=== PATIENT | female | born 2000 | race African-American/Black ===

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

== ENCOUNTER 2020-06-02 22:36 | Outpatient (CLI) | payer OTHER ==
[~2020-06-02] VITALS: Ht 162.6 cm; Wt 69.0 kg
[~2020-06-02 22:36] MED LIST changes: +MACR100C43 PO; +PREN29TA4 PO; +REGL10TA6 PO
[2020-06-02 22:53] VITALS: BP 117/75
[2020-06-03 00:01] VITALS: BP 113/68
--- NOTE | 2020-06-03 00:12 | IPNPDOC ---
Text Note Date of Service The patient was seen on 06/02/20. NOTE 20yo at 35+2wks presenting for c/o cramping pelvic pain. She denies VB, LOF, DFM. She also upon questioning admits to vaginal discharge. Vitals: normotensive, afebrile NST: reactive Tocometry: rare ctx's (total of 3 seen over 40 minute observation) PE: Gen: well-appearing, resting comfortably in bed, in NAD HEENT: NC/AT, airway patent and self-maintained RESP: no exaggerated respiratory effort appreciated ABD: soft, gravid, nontender, nondistended : SVE closed/thick/high. Vaginal discharge c/w candidiasis present, no VB noted Ext: no edema A/P: 20yo at 35+2wks presenting for c/o cramping pelvic pain. Patient not in labor. Clinical exam c/w vaginal candidiasis. Patient instructed to pick remover OTC monistat/microfluconazole/clotrimazole on the way home due to weekend hours Patient advised to avoid intercourse and baths for several days to allow rebalancing of vaginal pH Patient counseled on strict return precautions FKCs, labor precautions reviewed Patient to f/u for LV appt as scheduled in 3 days. All questions answered. Med rec done. VS,Fishbone, I+O VS, Fishbone, I+O Vital Signs Date Time Temp Pulse Resp B/P (MAP) Pulse Ox O2 Delivery O2 Flow Rate FiO2 06/02/20 22:53 97.8 106 117/75 (89) FRANCISCO GRECO DO Jun 03, 2020 00:12
== END 2020-06-03 00:05 | disposition home or self-care (01) ==
LOC: M LDO 22:36
DX: O23.593 Infection of other part of genital tract in pregnancy, third trimester (principal); B37.3 Candidiasis of vulva and vagina; Z3A.35 35 weeks gestation of pregnancy
CPT/HCPCS: 59025; G0378; G0463

== ENCOUNTER 2020-06-24 00:21 | Outpatient (CLI) | payer OTHER ==
[~2020-06-24] VITALS: Ht 162.6 cm; Wt 69.7 kg
[2020-06-24 00:39] VITALS: BP 109/62
[2020-06-24 01:48] VITALS: BP 119/75
[2020-06-24] MEDS ORDERED: MAPA500T2 PO (22:48)
== END 2020-06-24 02:00 | disposition home or self-care (01) ==
LOC: M LDO 00:21
PROVIDERS: ATTEND Obstetrics & Gynecology
DX: O42.02 Full-term premature rupture of membranes, onset of labor within 24 hours of rupture (principal); O26.13 Low weight gain in pregnancy, third trimester; Z3A.38 38 weeks gestation of pregnancy
CPT/HCPCS: 59025; G0378; G0463

== ENCOUNTER 2020-06-24 21:17 | Inpatient (IN) | payer OTHER ==
[~2020-06-24] VITALS: Ht 162.6 cm; Wt 69.6 kg
[2020-06-24 21:36] VITALS: BP 102/67
[2020-06-24] MEDS ORDERED: MAPA500T2 PO (22:48)
[2020-06-24 23:27] LABS: HEMATOCRIT 37.9 % (36.0-47.0); MEAN CORPUSCULAR HGB CONC 34.3 g/dl (32.0-36.5); MEAN CORPUSCULAR VOLUME 87.3 fl (80.0-96.0); PLATELET COUNT, AUTOMATED 213 10^3/uL (150-450); RED BLOOD COUNT 4.34 10^6/uL (4.00-5.40); WHITE BLOOD COUNT 10.3 10^3/uL (4.0-10.0)
--- NOTE | 2020-06-24 23:37 | HPEPDOC ---
Obstetrical History & Physical General Date of Admission Jun 24, 2020 at 22:23 History of Present Illness 20yo at 38+3wks presenting for c/o worsening ctx's. Upon arrival to L&D tri age she had PROM of meconium fluid. Endorses spotting VB since last SVE yesterday. Reports +FM. Chief Complaint: Contractions, term Information Provided By: Patient Care Care: Good Care Dating Final EDC: Jun 24, 2020 Final EDC for Daily Update: Jun 24, 2020 Final EDC by: LMP LMP: Sep 29, 2019 Antepartum Course Diagnos(e)s Chlamydia in (ESTEE negative) Echogenic focus on heart - negative QUAD screen = Resolved Insufficient weight gain (13lbs gained in ) Height (inches): 64 Pre- weight (lbs.): 141 Admission Weight (lbs.): 154 Change in Weight (lbs.): 13 Past Medical History Past Obstetrical History : Past Obstetrical History: [employer] History: History of STD Past Medical History Medical History Denies Surgical History: Nebo teeth Family History Significant Family History: Asthma (PGF), Heart disease (MGM) Social History Marital Status: Family situation: Spouse/partner home Psychosocial History: No pertinent psych hx * Smoker: non-smoker Alcohol: Denies Drugs: denies Abuse Violence Screening Have you been hit/kicked/slapp: No Have you been sexually assault: No Imunizations Tdap status: current (04/11/2020) Influenza Status: current ([id number]) Allergies Coded Allergies: No Known Allergies (Unverified , 10/12/19) Medications Scheduled PRN Acetaminophen (Mapap) 500 Mg Tablet, 1,000 MG PO Q6HP PRN for PAIN OR FEVER Physical Examination Physical Examination GENERAL: Alert and oriented times three. ABDOMEN: Gravid and non-tender to touch. FETUS: Is vertex (VTX) by sterile vaginal examination (SVE), fetus is vertex (VTX) by Shaggy. CARDS: well-perfused RESP: no exaggerated resp effort appreciated EXTREMITIES: No edema. No clonus. Deep tendon reflexes (DTRs) + . Vital Signs/I&O Vital Signs Date Time Temp Pulse Resp B/P (MAP) Pulse Ox O2 Delivery O2 Flow Rate FiO2 06/24/20 21:36 99 102/67 (79) 06/24/20 21:36 96.9 16 Room Air Laboratory Data 24H LABS Laboratory Tests 2 06/24/20 22:35: Serology Scanned Report Hepatitis B Testing Urine Culture: No Growth Pertinent Laboratoy Data Blood Type: B+ RBC Antibody Screen: Negative HIV: Negative Hepatitis B: Negative Rapid Plasma Reagin: Nonreactive Rubella: Immune Varicella: Nonreactive Chlamydia/Gonorrhea: Positive (ESTEE + on [id number], ESTEE - on [id number]) Group B Streptococcus: Negative Quad Screen Test: Negative Glucose Tolerance Test: 121 Anatomy Ultrasound Ultrasound Date: Feb 16, 2020 Placenta Location: Anterior Normal Anatomy: Yes Placenta Previa: No Vaginal Examination Dilation: 4 cm Effacement: 50% Station: -2 Cervical Consistency: Soft Cervical Position: Middle Presentation: Cephalic presentation Assessment Heart Rate (FHR): 130 Variability: Moderate Accelerations: Positive Decelerations: None Tocometer Contractions: Yes Frequency: regular, every 1-5 min. Multi-drug resistant Organism: No history of MDRO Assessment/Plan Assessment 20yo at 38+3wks presenting for c/o worsening ctx's and noted to have PROM of meconium fluid upon arrival to triage. SVE 4/50/-3. GBS neg. Plan Admit and orient. Rehabilitation Team Lead and consent. Diet: clears Group B Streptococcus (GBS) negative. Labs and intravenous (IV) per unit protocol. Counseled on Pitocin and augmentation of labor (IOL) if indicated. Lactated Ringers (LR): Bolus 1000 mL, then at 125 mL/hr. Patient may have epidural if desired Continuous EFM, consider internalization if indicated Anticipate normal spontaneous delivery (). C-S as appropriate. FRANCISCO GRECO DO Jun 24, 2020 23:37
[2020-06-25] MEDS ORDERED: OXYTOCIN 30 UNITS IN 0.9% NaCl 500ML IV BAG (J2590) As Ordered ONE (00:16)
[2020-06-25 01:40] VITALS: BP 117/67
--- NOTE | 2020-06-25 01:40 | DNPDOC ---
[facility] [place] Delivery Note Delivery Note DATE OF DELIVERY: 06/25/2020 PREDELIVERY DIAGNOSIS: 38+4/7 weeks' gestation and labor. POST DELIVERY DIAGNOSIS: Delivered. PROCEDURE: Vacuum-assisted vaginal delivery LEGAL ADMINISTRATOR: Dr. Francisco Greco ANESTHESIA: Local for repair ESTIMATED BLOOD LOSS: 200mL. FINDINGS: 6 pound 6 ounce female infant, Score 7/9, no nuchal cord, meconium appreciated DELIVERY SUMMARY: Patient found to be c/c/+3. Upon my arrival to room, FHR noted to be in 80s. Attempted intrauterine resuscitation and patient attempted pushing but unable to effect immediate delivery despite excellent pushing effort. Given period of time FHR had been in the 80s (total of 17 minutes) patient counseled on my recommenda tion for operative vaginal delivery to effect immediate delivery. Quickly reviewed the r/b/a/i of vacuum delivery and informed consent obtained. Kiwi vacuum applied over the flexion point that was visible on the perineum and suction increased to 60mmHG after ensuring no maternal tissue was trapped within the cup. With one push and one pull of vacuum (no pop-offs) head delivered in OA position. Suction released and vacuum cup removed from head. head with restitution to LOT with right shoulder anterior shoulder. Anterior shoulder and body delivered with ease. Infant stimulated and dried on delivery field with improvement in tone. Upon spontaneous cry, placed on maternal abdomen with care transferred to [place] Team. IV pitocin bolus initiated. After 3 minutes of delayed cord clamping, three vessel cord clamped x2 and cut by FOB. Third stage spontaneous with intact placenta demonstrating 25% abruption. Fundal massage revealed firm uterine tone and hemostasis achieved. Inspection revealed a 1st degree perineal laceration that was deviated to the left on the perineum. This was repaired under 1% lidocaine plain using 2- 0 vicryl in routine fashion with good approximation of tissue and hemostasis achieved. EBL 200ml. Mother and stable and bonding upon my leaving the room. FRANCISCO GRECO DO Jun 25, 2020 01:40
[2020-06-25 01:55] VITALS: BP 123/75
[2020-06-25 02:10] VITALS: BP 119/70
[2020-06-25 02:25] VITALS: BP 116/76
[2020-06-25 05:00] VITALS: BP 121/65
[2020-06-25 18:00] VITALS: BP 102/58
[2020-06-26 06:02] VITALS: BP 107/65
--- NOTE | 2020-06-26 06:18 | IPNPDOC ---
Progress Note Date of Service: Jun 26, 2020 Day#: 1 Progress Note SUBJECT: 20yo PPD1 s/p VAVD c/b 1MLL. She has been ambulating, voiding sp ontaneously without issue and tolerating regular diet. Breast feeding without issue. Reports lochia is less than a normal period]. Patient is ambulating well. [Reports some cramping with . Denies any pain. Voiding and passing flatus without difficulty]. OBJECTIVE: VITAL SIGNS: Within normal limits, afebrile. Alert and oriented times three. No increased wob Heart rate: non tachycardic Abdomen: Fundus firm at U-1. Soft, NTTP. [Minimal] lochia per patient ASSESSMENT: 20yo PPD1 s/p VAVD c/b 1MLL. Vitals within normal limits, afebrile, hemodynamically stable with no evidence of infection. PLAN: 1. Discharge to home likely tomorrow 2. Tylenol and Motrin for pain. 3. Encourage breast feeding and ambulation. 4. Desires nexplanon in 6wk for contraception 5. Routine PP visit in 6 weeks in clinic. 6. Discussed return precautions at length. VS, I&O, 24H, Fishbone Vital Signs/I&O Vital Signs Date Time Temp Pulse Resp B/P (MAP) Pulse Ox O2 Delivery O2 Flow Rate FiO2 06/26/20 06:02 97.0 65 18 107/65 (79) 100 Room Air ZEINA DUEÑAS DO Jun 26, 2020 06:18
[2020-06-26 17:51] VITALS: BP 117/64
[2020-06-27 06:00] VITALS: BP 116/74
[2020-06-27] MEDS ORDERED: AMER20OI TOP (07:10)
[2020-06-27] MEDS ORDERED: IBUP80TA PO (07:10)
--- NOTE | 2020-06-27 07:14 | DS.PDOC ---
Discharge Summary General Date of Admission Jun 24, 2020 at 22:23 Date of Discharge Jun 27, 2020 Discharge Summary HOSPITAL COURSE: Ms. 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 Her course has been unremarkable. On her day of discharge she met all appropriate discharge criteria. She was ambulating, voiding, tolerating a regular diet, had no pain, and minimal lochia. DISCHARGE MEDICATIONS: Please see below. ALLERGIES: Please see below. PHYSICAL EXAMINATION ON DISCHARGE: VITAL SIGNS: Please see below. GENERAL: AAOX3, standing at bedside. Pleasant and conversant. NAD ABDOMINAL EXAMINATION: Fundus firm at U-2. No fundal tenderness EXTREMITIES: No edema PSYCHIATRIC EXAMINATION: Affect appropriate LABORATORY DATA: Please see below. ACTIVITY: Pelvic rest for 6 weeks. DIET: Regular DISCHARGE PLAN: Discharge home DISPOSITION: Discharge home on 27Jun2020. DISCHARGE INSTRUCTIONS: 1. Pelvic rest for 6 weeks. ITEMS TO FOLLOWUP ON ON OUTPATIENT: 1. Call [facility] to schedule a visit for 6 weeks DISCHARGE CONDITION: Stable. TIME SPENT ON DISCHARGE: Greater than 20 minutes. Vital Signs/I&Os Vital Signs Date Time Temp Pulse Resp B/P (MAP) Pulse Ox O2 Delivery O2 Flow Rate FiO2 06/26/20 17:51 99.3 76 18 117/64 (81) 98 Room Air Discharge Medications Scheduled PRN Acetaminophen (Mapap) 500 Mg Tablet, 1,000 MG PO Q6HP PRN for PAIN OR FEVER, (Reported) Benzocaine (Americaine) 20% Oint...g., 0 DOSE TOP Q4H PRN for PAIN Ibuprofen (Ibuprofen) 800 Mg Tablet, 800 MG PO Q8HP PRN for PAIN LEVEL 6-10 Allergies Coded Allergies: No Known Allergies (Unverified , 10/12/19) FIDE HAWLEY DO Jun 27, 2020 07:14
== END 2020-06-27 14:55 | disposition home or self-care (01) | DRG 807 ==
LOC: M LDO 21:17 → M LDI 22:23 → M OBS 06-25 04:45
PROC: 10D07Z6 Extraction of Products of Conception, Vacuum, Via Natural or Artificial Opening (ICD-10-PCS; principal; 2020-06-25)
PROC: 0HQ9XZZ Repair Perineum Skin, External Approach (ICD-10-PCS; 2020-06-25)
DX: O42.02 Full-term premature rupture of membranes, onset of labor within 24 hours of rupture (principal); Z37.0 Single live birth; O77.0 Labor and delivery complicated by meconium in amniotic fluid; Z3A.38 38 weeks gestation of pregnancy; O76 Abnormality in fetal heart rate and rhythm complicating labor and delivery; O70.0 First degree perineal laceration during delivery

== ENCOUNTER 2021-01-06 19:52 | Emergency (ER) | payer OTHER ==
[~2021-01-06] VITALS: Ht 162.6 cm; Wt 63.8 kg
[~2021-01-06 19:52] MED LIST changes: +AMER20OI TOP; +IBUP80TA PO; +MAPA500T2 PO
[2021-01-06] MEDS ORDERED: NS 1,000 ML IV ONE (21:55)
[2021-01-06] MEDS ORDERED: KETOROLAC 30 MG/ML 1ML VIAL IV ONE (21:55)
[2021-01-06] MEDS ORDERED: ONDANSETRON 4MG/2ML VIAL IV ONE (21:55)
[2021-01-06 22:54] LABS: BASO % 0.2 % (0.0-1.0); EOS % 0.8 % (0.0-3.0); HEMATOCRIT 42.6 % (36.0-47.0); HEMOGLOBIN 14.2 g/dl (12.0-15.5); LYMPH # 0.4 10^3/uL (1.5-5.0); LYMPH % 7.7 % (24.0-44.0); MEAN CORPUSCULAR HEMOGLOBIN 28.7 pg (27.0-33.0); MEAN CORPUSCULAR HGB CONC 33.3 g/dl (32.0-36.5); MEAN CORPUSCULAR VOLUME 86.2 fl (80.0-96.0); MONO # 0.5 10^3/uL (0.0-0.8); MONO % 9.4 % (2.0-8.0); NEUTROPHILS # 4.2 10^3/uL (1.5-8.5); NEUTROPHILS % 81.9 % (36.0-66.0); PLATELET COUNT, AUTOMATED 287 10^3/uL (150-450); RED BLOOD COUNT 4.94 10^6/uL (4.00-5.40); WHITE BLOOD COUNT 5.1 10^3/uL (4.0-10.0)
[2021-01-06 23:18] LABS: ALBUMIN 4.3 GM/DL (3.2-5.2); BILIRUBIN,DIRECT 0.3 MG/DL (0.0-0.2); BILIRUBIN,TOTAL 1.1 MG/DL (0.2-1.0); TOTAL PROTEIN 7.5 GM/DL (6.4-8.2)
[2021-01-06] MEDS ORDERED: ONDA4TAB6 PO (23:59)
[2021-01-06] MEDS ORDERED: MACR100C43 PO (23:59)
[2021-01-07 00:04] VITALS: BP 117/56
== END 2021-01-07 00:16 | disposition home or self-care (01) ==
LOC: M ED 19:52
DX: N39.0 Urinary tract infection, site not specified (principal); R11.10 Vomiting, unspecified
CPT/HCPCS: 80047; 80076; 81001; 83690; 84702; 85025; 87086; 96361; 96374; 96375; 99284; J1885; J2405